=== PATIENT | male | born 1960 | race Caucasian/White ===

== ENCOUNTER 2022-08-29 03:40 | Emergency (ER) | payer OTHER ==
[~2022-08-29] VITALS: Ht 167.6 cm; Wt 59.0 kg
[2022-08-29] MEDS ORDERED: BP MED (04:08)
[2022-08-29] MEDS ORDERED: VENTOLIN HFA18 GM (04:09)
[2022-08-29] MEDS ORDERED: LOSARTAN POTASS50 MG PO (04:33)
[2022-08-29 05:15] VITALS: BP 159/92
== END 2022-08-29 05:24 | disposition home or self-care (01) ==
LOC: ED 03:40
DX: I10 Essential (primary) hypertension (principal); J44.9 Chronic obstructive pulmonary disease, unspecified; Z79.899 Other long term (current) drug therapy
CPT/HCPCS: 96372; 99283; J0360